=== PATIENT | male | born 1980 | race Caucasian/White ===

== ENCOUNTER 2021-05-17 07:46 | Outpatient (CLI) | payer OTHER, SELFPAY ==
--- NOTE | 2021-05-31 11:17 | WPDHOMESLEEP ---
Sleep Study - Home Unattended Date of Study: 05/17/21 <Beena Cortes, DO - Last Filed: 05/31/21 11:35> Ordering Provider: Octavio Swain APRN <Beena Cortes, DO - Last Filed: 05/31/21 11:35> Interpreting Provider: Beena Cortes DO <Beena Cortes, DO - Last Filed: 05/31/21 11:35> Home Sleep Study Type: Apnea Link Air <Beena Cortes, DO - Last Filed: 05/31/21 11:35> Height: 1.85 m <Beena Cortes DO - Last Filed: 05/31/21 11:35> Weight: 98.883 kg <Beena Cortes DO - Last Filed: 05/31/21 11:35> Body Mass Index: 28.8 <Beena Cortes DO - Last Filed: 05/31/21 11:35> Neck Circumference (inches): 15 <Beena Cortes DO - Last Filed: 05/31/21 11:35> [place]: 17 <Beena Cortes, DO - Last Filed: 05/31/21 11:35> Reason for Sleep Study Unrefreshing sleep, nighttime choking, Loud snoring <Beena Cortes, DO - Last Filed: 05/31/21 11:35> Sleep History The patient is a 40-year-old male with generalized anxiety disorder and GERD that had a home sleep test ordered by the pulmonology group [place] snoring, unrefreshing sleep and nighttime choking. The patient states that he ends up waking for coughing and choking during the night. Despite getting 7-8 hours of sleep, he is very tired after waking. His states that he is snoring more often and louder over the past 2 years. The patient had a turbinate reduction in the past by ENT. The patient states that he frequently awakens from sleep short of breath. He constantly awakens at night with heartburn, belching or cough. He constantly snores and is frequently loud enough that others complain. He frequently has trouble sleeping when he has a cold. He frequently wakes up gasping for air throughout the night. He frequently has breathing problems at night observed by others. He occasionally sweats excessively at night. He frequently notices heart palpitations or irregular beats throughout the night. He occasionally falls asleep during the day but never while driving. He denies sleep paralysis and cataplexy. He occasionally has trouble at work due to sleepiness. He occasionally experiences vivid dreamlike scenes upon awakening or falling asleep. I am he occasionally has nightmares. He occasionally has thoughts racing through his mind. He rarely feels sad or depressed. He rarely has anxiety. He occasionally notices parts of his body jerk. He rarely kicks throughout the night. He rarely experiences crawling and aching feelings in his legs but occasionally has leg pain during the night. He denies grinding his teeth during sleep and rarely awakens with jaw pain in morning. He is rarely bothered by pain during the day and rarely awakened by pain during the night. He rarely wakes up feeling stiff in the morning with sore and achy muscles. He goes to bed between 10 and 10:30 p.m. on weekdays and between 11 30 and midnight on the weekends. It takes him 30-45 minutes to fall asleep. He wakes up 4-7 times per night. When he awakens, he will drink water and try to go back to sleep. It takes him anywhere from 3-15 minutes to fall back asleep. He will wake up at 6:00 a.m. on weekdays and 7:30 a.m. on the weekends. He typically gets 4 and half to 5-1/2 hours of sleep per night. He will stay in bed for 10-30 minutes after awakening in morning. He currently lives with his and 3 children. His job is not involved rotating shifts. He denies consuming any caffeinated beverages within 2 hours of bedtime. He does not engage in physical exercise before bedtime. He will read and watch television before falling asleep. He denies taking naps in the afternoon or the evening. He drinks 1-2 caffeinated beverages per day. He has 3 alcoholic beverages per week. He is a former smoker. He denies recreational drug use. <Beena Cortes, DO - Last Filed: 05/31/21 11:35> [facility] Past Medic
[2021-05-31 11:34] VITALS: BMI 28.8
== END 2021-05-18 10:07 | disposition home or self-care (01) ==
LOC: ANHCSM 07:52
PROVIDERS: Visit Provider Nurse Practitioner Family
DX: R06.83 Snoring (principal); G47.10 Hypersomnia, unspecified; G47.31 Primary central sleep apnea
CPT/HCPCS: 95806

== ENCOUNTER 2021-06-22 13:45 | Outpatient (CLI) | payer OTHER, SELFPAY ==
--- NOTE | 2021-06-22 14:10 | ECHO_ITS ---
Patient Info Name: Parag Galan Age: 40 years : 1980 Gender: Male Ht: 73 in Wt: 218 lbs BSA: 2.28 m2 HR: 76 bpm BP: 140 / 91 mmHg Technical Quality: Good Exam Date: 06/22/2021 2:15 PM Exam Location: [facility] Patient Status: Outpatient Admit Date: 06/22/2021 Staff Ordering Physician: Octavio Swain APRN Quality Compliance Consultant: Chela Marroquin RDCS Attending Provider: Octavio Swain APRN Referring Physician: Wiliam CALLOWAY; Exam Type: CA echo doppler color flow Study Info Indications G47.31 - PRIMARY CENTRAL SLEEP APNEA Complete two-dimensional, color flow and Doppler transthoracic echocardiogram is performed. Summary 1. Complete two-dimensional, color flow and Doppler transthoracic echocardiogram is performed. 2. Left ventricular chamber dimension is normal. 3. Left ventricular systolic function is normal, estimated at 60-65%. 4. The left ventricular diastolic function is normal. 5. E/e' 6 is not elevated. 6. Global longitudinal strain is normal at -17.4%. 7. Left atrial chamber dimension is mildly enlarged. 8. There is trace mitral valve regurgitation. 9. No pulmonary hypertension, estimated pulmonary arterial systolic pressure is 27 mmHg. Left Ventricle E/e' 6 is not elevated. Global longitudinal strain is normal at -17.4%. Left ventricular chamber dimension is normal. Left ventricular systolic function is normal, estimated at 60-65%. The left ventricular diastolic function is normal. Right Ventricle Right ventricular systolic function is normal and with normal TAPSE 2.3 cm. Right ventricular chamber dimension is normal. Left Atria Left atrial chamber dimension is mildly enlarged. Right Atria Right atrial chamber dimension is normal. Aortic Valve The aortic valve is trileaflet. There is no aortic valve stenosis. There is no aortic valve regurgitation. Pulmonic Valve There is no pulmonic regurgitation. Mitral Valve There is no mitral valve stenosis. There is trace mitral valve regurgitation. Tricuspid Valve There is no tricuspid valve regurgitation. No pulmonary hypertension, estimated pulmonary arterial systolic pressure is 27 mmHg. Pericardium/Pleural There is no pericardial effusion. Inferior Vena Cava Normal inferior vena cava with >50% collapse upon inspiration consistent with normal right atrial pressure, 5 mmHg. Aorta The aortic root size at the sinus of Valsalva is normal. Left Ventricular Outflow Tract Name Value Normal LVOT 2D LVOT Diameter 2.2 cm LVOT Doppler LVOT Peak Gradient 4 mmHg LVOT Mean Gradient 2 mmHg LVOT VTI 18 cm LVOT VTI/AV VTI Ratio 1.0 LVOT Stroke Volume 73 ml LVOT CO 5.4 l/min LVOT CI 2.4 l/min/m2 Pulmonic Valve Name Value Normal
== END 2021-06-22 13:46 | disposition home or self-care (01) ==
LOC: ANHCARD 13:48
PROVIDERS: Visit Provider Nurse Practitioner Family
DX: G47.31 Primary central sleep apnea (principal)
CPT/HCPCS: 93306

== ENCOUNTER 2021-06-25 08:00 | Outpatient (CLI) | payer OTHER, SELFPAY ==
--- NOTE | 2021-07-15 10:22 | WPDSLEEPSTUD ---
Sleep Study Date of Study: 06/25/21 Ordering Provider: Octavio Swain APRN Interpreting Physician: Suha Diamond MD Sleep Study Type: CPAP Titration Height: 1.87 m Weight: 98.883 kg Body Mass Index: 28.3 Neck Circumference (inches): 15 [place]: 19 Reason for Sleep Study * 05/17/2021 Home Sleep Test with central sleep apnea; AHI of 43.2 and a BORIS of 22.2. 95% of the apneas were central. He presents for a PAP titration. * 06/22/2021 Echo : Left ventricular systolic function is normal, estimated at 60-65%. Sleep History Parag Galan is a 40-year-old male with generalized anxiety disorder and GERD that had a home sleep test ordered by the pulmonology group [place] snoring, unrefreshing sleep and nighttime choking. The patient states that he ends up waking for coughing and choking during the night. Despite getting 7-8 hours of sleep, he is very tired after waking. His states that he is snoring more often and louder over the past 2 years. The patient had a turbinate reduction in the past by ENT. The patient states that he frequently awakens from sleep short of breath. He constantly awakens at night with heartburn, belching or cough. He constantly snores and is frequently loud enough that others complain. He frequently has trouble sleeping when he has a cold. He frequently wakes up gasping for air throughout the night. He frequently has breathing problems at night observed by others. He occasionally sweats excessively at night. He frequently notices heart palpitations or irregular beats throughout the night. He occasionally falls asleep during the day but never while driving. He denies sleep paralysis and cataplexy. He occasionally has trouble at work due to sleepiness. He occasionally experiences vivid dreamlike scenes upon awakening or falling asleep. He occasionally has nightmares. He occasionally has thoughts racing through his mind. He rarely feels sad or depressed. He rarely has anxiety. He occasionally notices parts of his body jerk. He rarely kicks throughout the night. He rarely experiences crawling and aching feelings in his legs but occasionally has leg pain during the night. He denies grinding his teeth during sleep and rarely awakens with jaw pain in morning. He is rarely bothered by pain during the day and rarely awakened by pain during the night. He rarely wakes up feeling stiff in the morning with sore and achy muscles. He goes to bed between 10 and 10:30 p.m. on weekdays and between 11 30 and midnight on the weekends. It takes him 30-45 minutes to fall asleep. He wakes up 4-7 times per night. When he awakens, he will drink water and try to go back to sleep. It takes him anywhere from 3-15 minutes to fall back asleep. He will wake up at 6:00 a.m. on weekdays and 7:30 a.m. on the weekends. He typically gets 4 and half to 5-1/2 hours of sleep per night. He will stay in bed for 10-30 minutes after awakening in morning. He currently lives with his and 3 children. His job is not involved rotating shifts. He denies consuming any caffeinated beverages within 2 hours of bedtime. He does not engage in physical exercise before bedtime. He will read and watch television before falling asleep. He denies taking naps in the afternoon or the evening. Habits: He drinks 1-2 caffeinated beverages per day. He has 3 alcoholic beverages per week. He is a former smoker. He denies recreational drug use. [facility] Past Medical History Medical History (Updated 07/21/21 @ 12:26 by Suha Diamond MD) Anxiety Central sleep apnea Cleft hard palate Hearing difficulty Pre-hypertension Surgical History Surgical History H/O cranial reconstruction Social History Social History Social History: former 2012 quit Tobacco type: cigarettes Medications Home Medications Medication Instructions Recorde
[2021-07-21 12:31] VITALS: BMI 28.3
== END 2021-06-26 08:51 | disposition home or self-care (01) ==
LOC: ANHCSM 08:00
PROVIDERS: Visit Provider Nurse Practitioner Family
DX: G47.31 Primary central sleep apnea (principal)
CPT/HCPCS: 95811